=== PATIENT | male | born 1990 | race Hispanic/Latino ===

== ENCOUNTER 2018-02-13 23:46 | Emergency (ER) | payer OTHER, SELFPAY ==
[2018-02-13 23:58] VITALS: BP 126/83; PULSE 84; RESP 18; TEMP 36.7; O2SAT 94; BMI 30.9
--- NOTE | 2018-02-14 00:39 | DI.RAD.S_ITS ---
PROCEDURE: XR CHEST 2V INDICATIONS: shortness of breath, cough TECHNIQUE: 2 views of the chest were acquired. COMPARISON: None. FINDINGS: Surgical changes and devices: None. Lungs and pleura: No pleural effusions or pneumothorax. Linear areas of consolidation at the left lung base appear to be present. Mediastinum: Mediastinal contours are normal. Heart size is normal. Bones and chest wall: No suspicious bony abnormalities. Soft tissues appear unremarkable. IMPRESSION: Probable left basilar atelectasis. Superimposed pneumonia is felt to unlikely. Note: The preliminary ED physician interpretation and the final report are concordant. Dictated by: Alberto Carbone M.D. on 02/14/2018 at 8:27 Approved by: Alberto Carbone M.D. on 02/14/2018 at 8:27
[2018-02-14] MEDS: predniSONE 20 MG TABLET 60 MG PO (00:46)
[2018-02-14] MEDS: ALBUTEROL/IPRATROPIUM 3 ML AMPUL INH (00:47)
--- NOTE | 2018-02-14 01:01 | ED.SOB ---
HPI - SOB/Dyspnea General Chief Complaint: Shortness of Breath/Dyspnea Stated Complaint: difficulty breathing Time Seen by Provider: 02/14/18 00:29 Source: patient Mode of arrival: ambulatory Limitations: no limitations History of Present Illness Patient is a 27-year-old male who presents with shortness of breath and chest discomfort. It has been ongoing for about 2 weeks but has gotten worse over the last week. He says it is much worse at nighttime. He denies any fever or chills. He does have an albuterol inhaler he uses it occasionally he says it sometimes works. He denies any productive cough. He does have a mild sore throat. He overall feels okay but sometimes has chest discomfort. MD Complaint: shortness of breath Severity: mild Relieving factors: nothing Exacerbating factors: nothing Related Data Home Medications Medication Instructions Recorded Confirmed albuterol sulfate 2 puff INHALATION Q4-6H PRN 02/14/18 02/14/18 Previous Rx's Medication Instructions Recorded prednisone 50 mg PO DAILY 4 Days tab 02/14/18 Allergies Allergy/AdvReac Type Severity Reaction Status Date / Time No Known Drug Allergies Allergy Verified 02/14/18 00:44 Review of Systems Review of Systems All systems reviewed & are unremarkable except as noted in HPI and below Constitutional Denies chills, Denies fever(s), Denies lethargy and Denies weakness Cardiovascular Denies chest pain, Denies irregular heart rhythm, Denies lightheadedness, Denies palpitations and Denies orthopnea Respiratory Reports as per HPI Gastrointestinal Gastrointestinal: Denies abdominal pain, Denies change in bowel habits, Denies diarrhea, Denies nausea and Denies vomiting Musculoskeletal Denies back pain, Denies muscle weakness, Denies numbness and Denies tingling Integumentary/Breasts Denies pruritus, Denies erythema, Denies rash and Denies wounds Neurologic Denies numbness, Denies tingling and Denies weakness Endocrine Denies palpitations [facility] Medical History Patient denies medical problems (Acute) Social History Smoking Status: Never smoker alcohol intake: never substance use type: does not use Exam Initial Vital Signs Initial Vital Signs: Vital Signs Temperature 98.0 F 02/13/18 23:58 Pulse Rate 84 02/13/18 23:58 Respiratory Rate 18 02/13/18 23:58 Blood Pressure 126/83 H 02/13/18 23:58 Pulse Oximetry 94 02/13/18 23:58 Const General: cooperative and well developed Nutritional Appearance: well nourished Orientation: alert, awake, oriented x3 and not confused HENMT Throat: posterior oropharynx normal and tonsils normal Resp Effort & Inspection: normal respiratory effort, able to speak in complete sentences and not tachypneic Auscultation: no crackles, no rales, no rhonchi and wheezes expiratory wheezes and lower bilaterally Cardio Rate: regular rate Rhythm: regular rhythm Heart Sounds: no click, no gallops, no murmurs and no rubs Pulses: normal peripheral pulses Skin General: no rashes or lesions noted, No jaundice and No petechiae Neuro General: alert, awake and oriented x3 Cranial Nerves: CN's II-XI intact bilaterally Course Orders Ordered: ED Orders 02/14/18 00:39 XR chest 2V Stat Discontinued Medications Albuterol/Ipratropium (Duoneb) 3 ml INH NOW ONE Stop: 02/14/18 00:40 Last Admin: 02/14/18 00:47 Dose: 3 ml Prednisone (Deltasone) 60 mg PO NOW ONE Stop: 02/14/18 00:40 Last Admin: 02/14/18 00:46 Dose: 60 mg Vital Signs - 8 hr 02/13/18 23:58 02/14/18 01:12 Temperature 98.0 F Pulse Rate 84 81 Respiratory Rate 18 16 Blood Pressure 126/83 H Pulse Oximetry 94 98 MDM - SOB/Dyspnea Imaging Data Chest x-ray: Attestation: I personally reviewed and interpreted this imaging study as follows: My impression: No acute cardiopulmonary process MDM Narrative Medical decision making narrative: Patient is doing much better after albuterol. No fever no pneumonia on x-ray. likely bronchitis. Discharge Plan Departure Patient Disposition: Home, Self-Care Clinical Impression: Bronchitis Instructions: Acute Bronchitis Activity Restrictions/Additional Instructions: *You have been diagnosed with bronchitis *What to do: No antibiotics indicated at this time. *Continue to take medications as directed Albuterol with spacer every 4 hr for coughing episodes wheezing or chest tightness Prednisone once a day for the next 4 days *Follow up with your primary care provider in 2-3 days *Return to ER if you should have increasing shortness of breath, chest pain [or] any new, worsening or concerning symptoms Prescriptions: New prednisone 50 mg tablet 50 mg PO DAILY 4 Days RF: 0 No Action albuterol sulfate 90 mcg/actuation Hfa Aerosol Inhaler 2 puff INHALATION Q4-6H PRN (Reason: sob) RF: 0 Referrals: [facility] [Provider Group] Stand Alone Forms: Against Medical Advice
[2018-02-14 01:12] VITALS: PULSE 81; RESP 16; O2SAT 98
[2018-02-14 01:55] VITALS: BP 128/82; PULSE 84; RESP 18; O2SAT 96
== END 2018-02-14 01:40 | disposition home or self-care (01) ==
PROVIDERS: Emergency Provider Emergency Medicine
DX: J40 Bronchitis, not specified as acute or chronic (principal)
CPT/HCPCS: 71046; 94640; 99282; 99283